=== PATIENT | female | born 1970 | race Caucasian/White ===

== ENCOUNTER 2018-09-25 16:25 | Emergency (ER) | payer OTHER ==
[2018-09-25] MEDS: KETOROLAC 30 MG INJ IM (18:16)
== END 2018-09-25 19:34 | disposition home or self-care (01) ==
LOC: FTE 16:25
DX: J06.9 Acute upper respiratory infection, unspecified (principal); Z85.841 Personal history of malignant neoplasm of brain; Z95.0 Presence of cardiac pacemaker
CPT/HCPCS: 71046; 81025; 96372; 99284-25

== ENCOUNTER 2018-12-05 15:30 | Emergency (ER) | payer OTHER ==
[2018-12-05] MEDS: KETOROLAC 15 MG INJ IM (16:23)
== END 2018-12-05 16:38 | disposition short-term general hospital (02) ==
LOC: FTE 15:30
DX: M54.5 Low back pain (principal); Z95.0 Presence of cardiac pacemaker
CPT/HCPCS: 81025; 96372; 99285-25

== ENCOUNTER 2019-03-19 20:47 | Emergency (ER) | payer OTHER ==
[2019-03-19] MEDS: morphine 4 MG/ML VIAL IV (21:48)
[2019-03-19] MEDS: SOD CHLORIDE 0.9% 500 ML IV (21:48)
[2019-03-19] MEDS: ONDANSETRON 4 MG INJ IV (21:49)
[2019-03-19] MEDS: DIPHENHYDRAMINE 50 MG INJ IV (21:49)
== END 2019-03-19 22:57 | disposition home or self-care (01) ==
LOC: E/R 20:47
DX: S80.861A Insect bite (nonvenomous), right lower leg, initial encounter (principal); S80.862A Insect bite (nonvenomous), left lower leg, initial encounter; G44.209 Tension-type headache, unspecified, not intractable; R42 Dizziness and giddiness; W57.XXXA Bitten or stung by nonvenomous insect and other nonvenomous arthropods, initial encounter; Y92.9 Unspecified place or not applicable
CPT/HCPCS: 36415; 80048; 81003; 85025; 93005; 96374; 96375; 99284-25